=== PATIENT | male | born 1975 | race Hispanic/Latino ===

== ENCOUNTER 2019-05-23 08:28 | Emergency (ER) | payer OTHER, SELFPAY ==
[2019-05-23 08:35] VITALS: BP 124/91; PULSE 58; RESP 18; TEMP 35.9; O2SAT 100; BMI 31.0
[2019-05-23] MEDS: ONDANSETRON 4 MG/2 ML INJ IV (08:45)
[2019-05-23] MEDS: HYDROMORPHONE 1 MG INJ 0.5 MG IV ×2 (08:49→09:58)
--- NOTE | 2019-05-23 08:50 | ED_ITS ---
HPI - Abdominal Pain General Chief Complaint: Abdominal Pain Stated Complaint: lower right abdominal pain Time Seen by Provider: 05/23/19 08:41 Source: patient Mode of arrival: ambulatory Limitations: no limitations History of Present Illness HPI narrative: Patient is a 44-year-old male who presents with right lower quadrant pain. He said it started suddenly around 7:00 a.m. this morning. He has some mild flank pain as well. He does have a history of kidney stones this feels a little bit similar. He felt nauseous at times no vomiting. Pain is pretty constant. No fever. He was well last night. MD complaint: abdominal pain and flank pain Onset (ago): hour(s) (2) Pain Consistency: constant Related Data Previous Rx's Medication Instructions Recorded hydrocodone-acetaminophen [[place]] 1 tab PO Q4-6H PRN #10 tab 05/23/19 Review of Systems Review of Systems GENERAL: Denies chills, fatigue, malaise, fever, sweats, travel HEENT: Denies sinus pain, ear pain, sore throat, difficulty swallowing, neck pain RESPIRATORY: Denies dyspnea, cough, wheezing, hemoptysis, sputum. CARDIOVASCULAR: Denies chest pain, palpitations, orthopnea, edema GASTROINTESTINAL: Right lower quadrant pain, see H I : Mild right flank Denies dysuria, frequency, incontinence, hematuria, urinary retention MUSCULOSKELETAL: Denies weakness, joint pain, or bony pain SKIN: No rash, no erythema, no pruritus NEUROLOGIC: Denies weakness, dizziness, headache, numbness, change in speech, confusion PSYCHIATRIC: No concerning psychosocial issues. 12 point review of systems is negative except for those stated above and HPI [facility] Medical History Kidney stones (Acute) Social History Smoking Status: Former smoker Social History Smoking Status: Former smoker Exam Initial Vital Signs Initial Vital Signs: Vital Signs Temperature 96.7 F L 05/23/19 08:35 Pulse Rate 58 L 05/23/19 08:35 Respiratory Rate 18 05/23/19 08:35 Blood Pressure 124/91 H 05/23/19 08:35 Pulse Oximetry 100 05/23/19 08:35 GENERAL: Patient appears in pain holding right lower quadrant difficult to find a comfortable position HEENT: Head atraumatic,EOMI, pupils reactive, face symmetric, [moist] mucous membranes CARDIOVASCULAR: Regular rate and rhythm without murmurs, rubs or gallops. RESPIRATORY: Breath sounds equal bilaterally, no wheezes rales or rhonchi. ABDOMEN: Soft, mild right lower quadrant pain no guarding or rebound : Right CVA tenderness EXTREMITIES: Normal range of motion, no clubbing or edema. Neurovascularly intact NEUROLOGICAL: Alert and oriented x4.Normal gait and speech. Cranial nerves II through XII grossly intact. SKIN: Warm, dry, no laceration, no petechiae, no rashes or lesions. Course Orders Ordered: ED Orders 05/23/19 08:30 Complete Blood Count AUTO DIFF Stat Comprehensive Metabolic Panel Stat Lipase Stat Partial Thromboplastin Time Stat Prothrombin Time INR Stat 05/23/19 08:35 EKG-12 Lead Stat 05/23/19 08:48 CT kidney ureter bladder (KUB) Stat 05/23/19 11:00 Urine Microscopic Stat Discontinued Medications Hydromorphone HCl (Dilaudid) 0.5 mg IV NOW ONE Stop: 05/23/19 08:45 Last Admin: 05/23/19 08:49 Dose: 0.5 mg Hydromorphone HCl (Dilaudid) 0.5 mg IV NOW ONE Stop: 05/23/19 09:57 Last Admin: 05/23/19 09:58 Dose: 0.5 mg Ondansetron HCl (Zofran) 4 mg IV NOW ONE Stop: 05/23/19 08:45 Last Admin: 05/23/19 08:45 Dose: 4 mg Vital Signs - 8 hr 05/23/19 08:35 05/23/19 09:30 05/23/19 10:05 Temperature 96.7 F L Pulse Rate 58 L 62 55 L Respiratory Rate 18 16 18 Blood Pressure 124/91 H Blood Pressure [Right Arm] 138/91 H Pulse Oximetry 100 99 93 05/23/19 11:03 Temperature Pulse Rate 56 L Respiratory Rate Blood Pressure Blood Pressure [Right Arm] 137/85 Pulse Oximetry 95 MDM - Abdominal Pain Lab Data Attestation: I reviewed the patient's lab results. Result diagrams: 05/23/19 08:30 05/23/19 08:30 Lab Results 05/23/19 05/23/19 05/23/19 Range/Units 08:30 08:30 08:30 WBC 7.3 (4.5-11.0) X10^3/uL RBC 5.49 (4.5-5.9) X10^6/uL Hgb 15.9 (13.5-17.5) g/dL Hct 46.7 (41-53) % MCV 85.1 (80-100) fL MCH 29.0 (26-34) PG MCHC 34.0 (30-36) % RDW 13.8 (11.6-14.8) % Plt Count 294 (150-400) X10^3/uL Neut % (Auto) 50.2 (50-75) % Lymph % (Auto) 33.1 (25-40) % [place] % (Auto) 9.8 (3-14) % Eos % (Auto) 6.2 H (2-4) % Baso % (Auto) 0.7 (0-2) % Neut # (Auto) 3700 (9644-1508) /uL Lymph # (Auto) 2400 (4086-0789) /uL Avery # (Auto) 700 (0-900) /uL Eos # (Auto) 500 H (0-450) /uL Baso # (Auto) 100 (0-100) /uL PT 11.0 (10.1-12.7) SECONDS INR 1.0 (0.9-1.3) APTT 37 H (26.4-36.2) SECONDS Sodium 141 (137-145) mmol/L Potassium 4.3 (3.4-5.1) mmol/L Chloride 104 (98-107) mmol/L Carbon Dioxide 29 (22-32) mmol/L BUN 19 (9-20) mg/dL Creatinine 1.00 (0.66-1.25) mg/dL Estimated GFR > 60.0 (>60) mL/min BUN/Creatinine Ratio 19.0 (6-22) Glucose 116 H (70-100) mg/dL Calcium 9.4 (8.4-10.2) mg/dL Total Bilirubin 0.5 (0.2-1.3) mg/dL AST 25 (17-59) IU/L ALT 28 (21-72) IU/L Alkaline Phosphatase 108 (38-126) U/L Total Protein 7.7 (6.3-8.2) g/dL Albumin 4.4 (3.5-5.0) g/dL Globulin 3.3 (1.7-4.1) g/dL Albumin/Globulin Ratio 1.3 (1.0-2.8) Lipase 66 (23-300) U/L Urine RBC (0-5/HPF) Urine WBC (0-5/HPF) Urine Bacteria (None) Urine Mucus (Negative) Ur Culture Indicated? 05/23/19 Range/Units 11:00 WBC (4.5-11.0) X10^3/uL RBC (4.5-5.9) X10^6/uL Hgb (13.5-17.5) g/dL Hct (41-53) % MCV (80-100) fL MCH (26-34) PG MCHC (30-36) % RDW (11.6-14.8) % Plt Count (150-400) X10^3/uL Neut % (Auto) (50-75) % Lymph % (Auto) (25-40) % Avery % (Auto) (3-14) % Eos % (Auto) (2-4) % Baso % (Auto) (0-2) % Neut # (Auto) (0384-0508) /uL Lymph # (Auto) (1135-8534) /uL Avery # (Auto) (0-900) /uL Eos # (Auto) (0-450) /uL Baso # (Auto) (0-100) /uL PT (10.1-12.7) SECONDS INR (0.9-1.3) APTT (26.4-36.2) SECONDS Sodium (137-145) mmol/L Potassium (3.4-5.1) mmol/L Chloride (98-107) mmol/L Carbon Dioxide (22-32) mmol/L BUN (9-20) mg/dL Creatinine (0.66-1.25) mg/dL Estimated GFR (>60) mL/min BUN/Creatinine Ratio (6-22) Glucose (70-100) mg/dL Calcium (8.4-10.2) mg/dL Total Bilirubin (0.2-1.3) mg/dL AST (17-59) IU/L ALT (21-72) IU/L Alkaline Phosphatase (38-126) U/L Total Protein (6.3-8.2) g/dL Albumin (3.5-5.0) g/dL Globulin (1.7-4.1) g/dL Albumin/Globulin Ratio (1.0-2.8) Lipase (23-300) U/L Urine RBC 1-5/hpf (0-5/HPF) Urine WBC 1-5/hpf (0-5/HPF) Urine Bacteria Few (2-10) H (None) Urine Mucus 1+ H (Negative) Ur Culture Indicated? Cult not indicated Point of care testing: Urine Dip Bedside Urine Glucose Negative Bedside Urine Bilirubin - Negative Bedside Urine Ketone - Negative Urine Specific [place] 1.025 Bedside Urine Occult Blood + Bedside Urine pH 6.5 Bedside Urine Protein - Negative Bedside Urine Urobilinogen - Negative Bedside Urine Nitrite - Negative Bedside Urine Leukocytes - Negative Esterase Imaging Data CT scan - abdomen: Radiologist's impression: PROCEDURE: CT KIDNEY URETER BLADDER (KUB) INDICATIONS: right flank pain TECHNIQUE: Noncontrast 5 mm thick sections acquired from the diaphragms to the symphysis. 5 mm thick coronal and sagittal reformats were then performed. For radiation dose reduction, the following was used: automated exposure control, adjustment of mA and/or kV according to patient size. COMPARISON: None. FINDINGS: Image quality: Excellent. Lung bases: Lung bases are clear. Heart size is normal. Urinary system: Both kidneys are normal in size. There are bilateral nonobstructive kidney stones comprised of a punctate calculus at the mid right kidney, several additional punctate calculi at the mid left kidney, and a central 5 mm calculus at the lower third collecting system of the left kidney.. No hydronephrosis or perinephric fat stranding. The left ureter is normal, the right ureter is mildly dilated and there is mild hydronephrosis associated with presence of a 1-2 mm calculus at the far distal margin of the right ureter virtually at the ureteral orifice seen on series 2 image 81. Bladder wall thickness is normal; no calcified bladder stones. Other solid organs: Liver is normal in size. Gallbladder appears normal. Pancreas is normal in contours. Spleen is normal in size. No adrenal nodules. Peritoneum and bowel: Unenhanced bowel loops demonstrate normal wall thickness and caliber. No free fluid or air. Nodes and vessels: No retroperitoneal or mesenteric adenopathy by size criteria. Aorta and inferior vena cava are normal in caliber. Abdominal wall: No ventral hernias. Pelvis: No free pelvic fluid. No inguinal hernias or adenopathy. Bones: No suspicious bony lesions. No vertebral body compression fractures. IMPRESSION: 1. Bilateral punctate renal collecting system calculi and a single 5 mm left lower third renal collecting system calculus all of which are nonobstructive. 2. Far distal right ureteral calculus, one-2 mm diameter, causing mild hydronephrosis and hydroureter on the right. This calculus is virtually at the orifice of the ureter after it has passed through the submucosal tunnel portion of the ureter. Dictated by: Satish Elkins M.D. on 05/23/2019 at 9:35 MDM Narrative Medical decision making narrative: PATIENT OVERALL IS FEELING BETTER. Pain controlled after Dilaudid. No sign of infection. He does have a kidney stone in his distal right ureter. The likely causing symptoms. Recommend follow-up with Urology. But he will likely pass this kidney stone. Discharge Plan Departure Patient Disposition: Home Clinical Impression: Calculus of kidney Discharge Date/Time: 05/23/19 11:36 Interventions: ED Discharge Assessment Last Done: 05/23/19 11:35 Instructions: DI for Kidney Stones Activity Restrictions/Additional Instructions: *You have been diagnosed with kidney stone *What to do: Increased fluid intake *Continue to take medications as directed Ibuprofen 800 mg every 8 hours if needed for stcc-sm-aurskkol pain [place] 1 tablet every 6 hours if needed for severe pain *Follow up with your primary care provider in 2-3 days, call Urology today to schedule follow-up appointment next week *Return to ER if you should have pain not controlled, fever, persistent vomiting or any new, worsening or concerning symptoms Prescriptions: New hydrocodone-acetaminophen [[place]] 5-325 mg tablet 1 tab PO Q4-6H PRN (Reason: pain) Qty: 10 RF: 0 Referrals: [facility] [Outside] Jimmie Richards MD [Non-Staff] - Vikki Edwards MD [Physician] -
[2019-05-23 08:51] LABS: Add Manual Diff / Slide Review NO; Basophils Absolute Auto 100 /uL (0-100); Basophils Percent Auto 0.7 % (0-2); Eosinophils Absolute Auto 500 /uL (0-450); Eosinophils Percent Auto 6.2 % (2-4); Hematocrit 46.7 % (41-53); Hemoglobin 15.9 g/dL (13.5-17.5); Lymphocytes Absolute Auto 2400 /uL (1100-4500); Lymphocytes Percent Auto 33.1 % (25-40); Mean Corpuscular Volume 85.1 fL (80-100); Monocytes Absolute Auto 700 /uL (0-900); Monocytes Percent Auto 9.8 % (3-14); Neutrophils Absolute Auto 3700 /uL (1500-7000); Neutrophils Percent Auto 50.2 % (50-75); Platelet Count 294 X10^3/uL (150-400); Red Blood Cell Count 5.49 X10^6/uL (4.5-5.9); Red Cell Distribution Width 13.8 % (11.6-14.8); White Blood Cell Count 7.3 X10^3/uL (4.5-11.0)
[2019-05-23 08:56] LABS: PTT Partial Thromboplastin Tim 37 SECONDS (26.4-36.2)
[2019-05-23 08:58] LABS: Alanine Aminotransferase 28 IU/L (21-72); Albumin 4.4 g/dL (3.5-5.0); Albumin Globulin Ratio 1.3 (1.0-2.8); Alkaline Phosphatase 108 U/L (38-126); Aspartate Aminotransferase 25 IU/L (17-59); Bilirubin Total 0.5 mg/dL (0.2-1.3); Blood Urea Nitrogen 19 mg/dL (9-20); Calcium 9.4 mg/dL (8.4-10.2); Carbon Dioxide 29 mmol/L (22-32); Chloride 104 mmol/L (98-107); Estimated Glomerular Filt Rate > 60.0 mL/min (>60); Globulin 3.3 g/dL (1.7-4.1); Glucose 116 mg/dL (70-100); HEMOLYSIS < 15 (0-50); Lipase 66 U/L (23-300); Potassium 4.3 mmol/L (3.4-5.1); Sodium 141 mmol/L (137-145); Total Protein 7.7 g/dL (6.3-8.2)
[2019-05-23 09:30] VITALS: PULSE 62; RESP 16; O2SAT 99
[2019-05-23 10:05] VITALS: BP 138/91; PULSE 55; RESP 18; O2SAT 93
[2019-05-23 11:03] VITALS: BP 137/85; PULSE 56; O2SAT 95
[2019-05-23 11:20] LABS: Bacteria Urine Few (2-10); Culture Indicated Urine Cult Not Indicated; Mucus Urine 1+ (Negative); RBC Urine 1-5/HPF (0-5/HPF); WBC Urine 1-5/HPF (0-5/HPF)
== END 2019-05-23 11:36 | disposition home or self-care (01) ==
PROVIDERS: Emergency Provider Emergency Medicine
DX: N20.0 Calculus of kidney (principal); R10.9 Unspecified abdominal pain
CPT/HCPCS: 36591; 74176; 80053; 81003; 81015; 83690; 85025; 85610; 85730; 93005; 93010; 96374; 96375; 99283; 99285; J1170; J2405